=== PATIENT | male | born 1980 | race Caucasian/White ===

== ENCOUNTER 2022-06-15 17:29 | Inpatient (IN) | payer OTHER ==
[~2022-06-15] VITALS: Ht 182.9 cm; Wt 113.4 kg
[2022-06-15 18:03] LABS: HEMOGLOBIN 14.5 gm/dl (14.0-17.5); RED BLOOD COUNT 4.89 M/UL (4.20-5.50); WHITE BLOOD COUNT 12.5 K/UL (4.5-11.0)
[2022-06-15 18:24] LABS: BUN/CREATININE RATIO 14 (0-10)
[2022-06-16 06:32] LABS: RED BLOOD COUNT 4.41 M/UL (4.20-5.50); WHITE BLOOD COUNT 11.1 K/UL (4.5-11.0)
[2022-06-16 06:34] LABS: HEMOGLOBIN 12.5 gm/dl (14.0-17.5)
[2022-06-17 06:56] LABS: HEMOGLOBIN 12.9 gm/dl (14.0-17.5); RED BLOOD COUNT 4.41 M/UL (4.20-5.50); WHITE BLOOD COUNT 9.3 K/UL (4.5-11.0)
[2022-06-17] MEDS ORDERED: AUGMENTIN 500-500 MG PO (09:38)
== END 2022-06-17 17:18 | disposition home or self-care (01) | DRG 373 ==
LOC: ER1 17:29 → CDU 21:32 → MED SURG 4 21:32
PROVIDERS: ADMIT Surgery
DX: K35.33 Acute appendicitis with perforation, localized peritonitis, and gangrene, with abscess (principal); Z96.698 Presence of other orthopedic joint implants; Z20.822 Contact with and (suspected) exposure to COVID-19; Z90.49 Acquired absence of other specified parts of digestive tract; Z82.49 Family history of ischemic heart disease and other diseases of the circulatory system; Z72.89 Other problems related to lifestyle
CPT/HCPCS: 36415; 80053; 81001; 83690; 85025; 85027; 85652; 86140; 96374; 96375; 99285; J1170; J2270; J2405; J2543; J3480; Q9967; U0002